=== PATIENT | male | born 1950 | race Caucasian/White ===

== ENCOUNTER 2020-01-21 16:24 | Emergency (ER) | payer MEDICARE, SELFPAY ==
[2020-01-21 16:38] VITALS: BP 123/73; PULSE 75; RESP 16; TEMP 36.8; O2SAT 100
--- NOTE | 2020-01-21 17:13 | ED.GENADULT ---
HPI - General Adult General Chief complaint: Urogenital-Male Stated complaint: Frequent urination/ear pain Time Seen by Provider: 01/21/20 17:14 Source: patient, family (Sister) and RN notes reviewed Mode of arrival: ambulatory Limitations: physical limitation History of Present Illness HPI narrative: 69-year-old male presents with complaints of intermittent dysuria for the past yeas. Dysuria consist of episodes of incontinence, frequent urination, and urgency.? No treatment.? Denies fever or chills.? Denies diarrhea, nausea, vomiting, and abdominal pain.? Tolerating po intake well. Episodes of constipation without abdominal pain.? Last bowel movement 1 day ago per [place]. Sister denies any concerns to her knowledge related to his bowels. No genital discharge.? No concerns for STDs. No flank pain. Exacerbating factors urinating.? Denies hematuria or genital bleeding. Denies headaches, weakness, fatigue, myalgia, or facial swelling. Denies chest pain or dyspnea. Denies cough, rhinorrhea, congestion, sore throat. Denies recent traveling. Denies concern for COVID-19 or exposures been home since [id number] order except for essential household needs and return home. At this time, patient is not suspected of having COVID-19. Complaints of bilateral ear itching, discomfort, decrease hearing, and being clogged for the past 1.5 years. No treatment. Denies drainage. Denies injury to the ear. No nasal drainage and congestion. Denies nausea, vomiting, tinnitus, and dizziness. Some parts of this dictation were generated by voice recognition software and may contain typographical and/or grammatical inaccuracies. Related Data Home Medications Medication Instructions Recorded Confirmed apixaban [Eliquis] 5 mg PO DAILY 01/21/20 01/21/20 atorvastatin 40 mg PO HS 01/21/20 01/21/20 lisinopril 2.5 mg PO DAILY 01/21/20 01/21/20 metformin 500 mg PO BID 01/21/20 01/21/20 metoprolol tartrate 50 mg PO Q12H 01/21/20 01/21/20 Allergies Allergy/AdvReac Type Severity Reaction Status Date / Time No Known Allergies Allergy Verified 01/21/20 17:15 Review of Systems Review of Systems: Narrative: CONSTITUTIONAL: Denies fever, chills, sweats. EYES: Denies visual changes, redness, discharge. ENT: Denies rhinorrhea, congestion, sore throat. Complains of bilateral otalgia, itching, clogged. CARDIOVASCULAR: Denies chest pain, palpitations, edema. RESPIRATORY: Denies dyspnea, wheezing, cough. GASTROINTESTINAL: Denies abdominal pain, nausea, vomiting, diarrhea. GENITOURINARY: Complains of dysuria (incontinence, frequent urination, and urgency). Denies hematuria, abnormal discharge. SKIN: Denies rash or itching. MUSCULOSKELETAL: Denies acute back pain, joint pain, or myalgia. NEUROLOGIC: Denies numbness or focal weakness. PSYCHIATRIC: Denies anxiety or depression. All other systems reviewed are negative, except as documented in HPI and below. [facility] Past Medical History Medical History (Updated 01/22/20 @ 00:00 by Frank Crane) Cerebral vascular accident Diabetes Heart murmur Hypercholesteremia Hypertension Surgical History Surgical History (Updated 01/21/20 @ 19:21 by CRISTIANO Tirpathi) No significant past surgical history Family History Family History (Updated 01/21/20 @ 19:21 by CRISTIANO Tripathi) Father No problems noted. Mother Heart disease Diabetes mellitus Social History Social History (Updated 01/21/20 @ 19:22 by CRISTIANO Tripathi) Smoking packs per day: 1 Smoking cigarettes per day: 20.0 Years smoked: 55 Smoking pack-years: 55.00 Smoking status: Current every day smoker Tobacco type: cigarettes Second hand tobacco smoke exposure: Yes Alcohol intake: former Substance use: never Living arrangements: alone Occupation/Education: retired Gender identity (if verbalized by the patient): Male Comments At time of signature, agree with nurse
== END 2020-01-21 17:40 | disposition home or self-care (01) ==
PROVIDERS: Emergency Provider Nurse Practitioner Family; PCP Internal Medicine
DX: R30.0 Dysuria (principal); H61.21 Impacted cerumen, right ear; K59.00 Constipation, unspecified; Z86.73 Personal history of transient ischemic attack (TIA), and cerebral infarction without residual deficits; E11.9 Type 2 diabetes mellitus without complications; E78.00 Pure hypercholesterolemia, unspecified; I10 Essential (primary) hypertension; F17.210 Nicotine dependence, cigarettes, uncomplicated
CPT/HCPCS: 69210; 81003; 87077; 87086; 87088; 87186; 99213; G0463

== ENCOUNTER 2021-02-21 10:01 | Emergency (ER) | payer MEDICARE, SELFPAY ==
--- NOTE | ~2021-02-21 | XR_ITS ---
EXAMINATION: XR chest 2V DATE: 02/21/2021 10:25 INDICATION: Smoker presenting with shortness of breath and wheezing TECHNIQUE: frontal and lateral views of the chest were obtained. COMPARISON: None FINDINGS: A few small scattered calcified pulmonary nodules and calcified bilateral hilar and mediastinal lymph nodes consistent with old granulomatous disease. Masslike enlargement of the right hilum. No pleural effusion or pneumothorax. Heart size is normal. Moderate thoracic spondylosis with chronic appearing mild anterior wedging of a midthoracic vertebral body, likely T8. IMPRESSION: 1. Masslike enlargement of the right hilum which could be due to enlargement of the central pulmonary arteries in the setting of pulmonary arterial hypertension or due to lymphadenopathy which could be reactive, metastatic or lymphoma. Would recommend further evaluation with contrast-enhanced CT . Reviewed, dictated and finalized at location A. IMPRESSION: 1. Masslike enlargement of the right hilum which could be due to enlargement of the central pulmonary arteries in the setting of pulmonary arterial hypertensi on or due to lymphadenopathy which could be reactive, metastatic or lymphoma. W ould recommend further evaluation with contrast-enhanced CT .
--- NOTE | 2021-02-21 10:06 | ED.URI ---
HPI - URI/Sore Throat General Chief Complaint: Upper Respiratory Infection Stated Complaint: Wheezing,shortness of breathe Time Seen by Provider: 02/21/21 10:06 Source: patient, family and RN notes reviewed History of Present Illness HPI Narrative: Patient is a 70-year-old male who presents the urgent care with complaints of shortness of breath and wheezes. Slot Floorperson states that on Thursday she had to call 911 because his blood sugar was near 280s. Patient's nurse believes that he may have an infection because his blood sugars have been higher . Caregiver states that he did not go to the emergency room when EMS was called on Thursday. States that he has been wheezy and short of breath since Thursday. Denies of any known fevers or any known exposure to Covid, influenza or strep. Patient also reports of a sore throat and feels like it is swollen . Patient has not taken anything [id number] for his symptoms and denies the use of any inhalers or nebulizers. Patient denies any past medical history of COPD or emphysema. Patient does smoke a pack a day. Patient does not use any oxygen at home. Patient is not struggling to breathe but does have audible wheezes. No other acute complaints. Patient and caregiver aware of the plan of care. Some parts of this dictation were generated by voice recognition software and may contain typographical and/or grammatical inaccuracies. Related Data Home Medications Medication Instructions Recorded Confirmed apixaban [Eliquis] 5 mg PO DAILY 01/21/20 02/21/21 atorvastatin 40 mg PO HS 01/21/20 02/21/21 lisinopril 2.5 mg PO DAILY 01/21/20 02/21/21 metformin 500 mg PO BID 01/21/20 02/21/21 metoprolol tartrate 50 mg PO Q12H 01/21/20 02/21/21 Allergies Allergy/AdvReac Type Severity Reaction Status Date / Time No Known Drug Allergies Allergy Unknown Verified 02/15/20 12:39 Review of Systems Review of Systems: Narrative: CONSTITUTIONAL: Denies fever, chills, or sweats. EYES: Denies visual changes, redness, or discharge. ENT: Denies rhinorrhea, congestion, otalgia. Reports of throat swelling CARDIOVASCULAR: Denies chest pain, palpitations, or edema. RESPIRATORY: Reports of wheezing and dyspnea GASTROINTESTINAL: Denies abdominal pain, nausea, vomiting, or diarrhea. GENITOURINARY: Denies dysuria or hematuria. SKIN: Denies rash or itching. MUSCULOSKELETAL: Denies back pain, joint pain, or myalgia. NEUROLOGIC: Denies headache, numbness, or weakness. All other systems reviewed are negative, except as documented in HPI. [facility] Past Medical History Medical History (Updated 02/21/21 @ 10:53 by CRISTIANO Oates) Cerebral vascular accident Diabetes Heart murmur Hypercholesteremia Hypertension Surgical History Surgical History (System 02/15/20 @ 12:39 by Derrick Coley) No significant past surgical history Family History Family History (System 02/15/20 @ 12:39 by Derrick Coley) Father No problems noted. Mother Heart disease Diabetes mellitus Social History Social History (System 02/15/20 @ 12:39 by Derrick Coley) Smoking packs per day: 1 Smoking cigarettes per day: 20.0 Years smoked: 55 Smoking pack-years: 55.00 Smoking status: Current every day smoker Tobacco type: cigarettes Second hand tobacco smoke exposure: Yes Alcohol intake: former Substance use: never Gender identity (if verbalized by the patient): Male Comments At the time of my signature, I reviewed and agree with the nursing past medical, surgical, social, and family history. There is no relevant family history pertinent to the patient complaint. Exam Narrative: Exam Narrative: GENERAL: This is a well-nourished, well-developed patient, in no apparent distress. HEAD: normocephalic, atraumatic. EYES: PERRL. Sclera clear/white. Vision is grossly intact. EARS: External ears normal, auditory canals clear and without drainage, TMs normal without perforation. Hearing gross
[2021-02-21 10:08] VITALS: BP 119/66; PULSE 74; RESP 18; TEMP 36.2; O2SAT 99
[2021-02-21] MEDS: ALBUTEROL SULFATE NEB 2.5 MG/3 ML INH INHALATION (10:34)
== END 2021-02-21 10:53 | disposition short-term general hospital (02) ==
PROVIDERS: Emergency Provider Nurse Practitioner Family; PCP Internal Medicine
DX: R06.02 Shortness of breath (principal); R91.8 Other nonspecific abnormal finding of lung field; F17.210 Nicotine dependence, cigarettes, uncomplicated; Z86.73 Personal history of transient ischemic attack (TIA), and cerebral infarction without residual deficits; E11.9 Type 2 diabetes mellitus without complications; R01.1 Cardiac murmur, unspecified; E78.00 Pure hypercholesterolemia, unspecified; I10 Essential (primary) hypertension
CPT/HCPCS: 71046; 94640; 99213; G0463